=== PATIENT | male | born 1965 | race African-American/Black ===

== ENCOUNTER 2022-01-27 16:34 | Inpatient (IN) ==
[2022-01-27] MEDS ORDERED: Magnesium Sulfate 2 gm BAG 2 GM/50 ML BAG IVPB ONE (16:44)
[2022-01-27] MEDS ORDERED: Albuterol/Ipratropium NEB.SOL (2.5/0.5 MG) 3 ML NEB.SOLN INH ONE ×2 (16:44→20:16)
[2022-01-27 17:02] LABS: ABS Basophils 0.1 10^3/ul (0-0.2); ABS Eosinophils 0.3 10^3/ul (0-0.6); ABS Lymphocytes 1.2 10^3/ul (1.0-4.8); ABS Monocytes 0.6 10^3/ul (0-0.8); ABS Neutrophils 10.2 10^3/ul (1.5-7.7); Eosinophil % 2.1 %; Hematocrit 43 % (42-52); Hemoglobin 14.4 g/dL (14.0-18.0); Lymphocyte % 9.4 %; Mean Corpuscular HGB Conc 33 g/dL (31-36); Mean Corpuscular Hemoglobin 28 pg (27-31); Mean Corpuscular Volume 84 fL (80-94); Mean Platelet Volume 7.4 fL (7.4-10.4); Platelet Count 231 10^3/uL (150-450); Red Blood Count 5.19 10^6 /uL (4.18-5.48); Red Cell Distribution Width 14 % (10-15); White Blood Count 12.3 10^3/uL (3.5-10.8)
[2022-01-27 18:51] LABS: PCO2 Arterial 42 mmHg (35-45); PO2 Arterial 63 mmHg (80-100)
[2022-01-27 19:03] LABS: Albumin 4.6 g/dL (3.2-5.2); Albumin/Globulin Ratio 1.3 (1-3); Globulin 3.5 g/dL (2-4); Total Protein 8.1 g/dL (6.4-8.9); eGFR CKD-EPI 43.4 (>60)
[2022-01-27] MEDS ORDERED: Heparin 5000 UNITS/ML 1 mL VIAL SUBCUT SCH (22:00)
[2022-01-27] MEDS ORDERED: methylPREDNISolone SOD 40 mg/ml 1 ml VIAL IV ONE (22:00)
[2022-01-27] MEDS ORDERED: Albuterol HFA INHALER 8 gm MDI INH ONE (22:18)
[2022-01-28 00:11] LABS: C Reactive Protein 9.64 mg/L (<8.01); Magnesium 1.6 mg/dL (1.9-2.7)
[2022-01-28 00:25] LABS: TSH Ultra Thyroid Stim Horm 1.77 mcIU/mL (0.34-5.60)
[2022-01-28] MEDS: SPIRIVA Respimat (tiotropium) 2.5 mcg/inh Inhaler INH SCH ×2 (00:26→07:45)
[2022-01-28] MEDS: Albuterol HFA INHALER 8 gm MDI INH PRN (00:39)
[2022-01-28] MEDS: Enoxaparin 100 MG/ML SYR SUBCUT SCH ×2 (00:40→08:23)
[2022-01-28] MEDS: NS 0.9% 1000 ml BAG 1,000 ML IV SCH ×2 (00:42→13:17)
[2022-01-28] MEDS ORDERED: Nicotine GUM 2MG FRUIT FLAVOR PO PRN (00:44)
[2022-01-28] MEDS: ZAFIRLUKAST 20 MG PO SCH ×2 (00:47→09:58)
[2022-01-28 01:37] LABS: Vitamin D Total 25(OH) 18.9 ng/mL (20-50)
[2022-01-28 02:05] LABS: Urine Appearance Clear; Urine Bacteria Absent (Absent); Urine Bilirubin Negative (Negative); Urine Blood Negative (Negative); Urine Color Yellow; Urine Glucose Negative (Negative); Urine Ketones Negative (Negative); Urine Nitrite Negative (Negative); Urine Protein Negative (Negative); Urine Red Blood Cell Trace(0-2/hpf) (Absent); Urine Specific Gravity 1.012 (1.002-1.030); Urine Squamous Epithelial Cell Present (Absent); Urine Urobilinogen Negative (Negative); Urine White Blood Cell Trace(0-5/hpf) (Absent)
[2022-01-28 05:18] LABS: ABS Lymphocytes 0.4 10^3/ul (1.0-4.8); ABS Monocytes 0.1 10^3/ul (0-0.8); ABS Neutrophils 4.8 10^3/ul (1.5-7.7); Hematocrit 41 % (42-52); Hemoglobin 13.7 g/dL (14.0-18.0); Lymphocyte % 8.1 %; Mean Corpuscular HGB Conc 34 g/dL (31-36); Mean Corpuscular Hemoglobin 28 pg (27-31); Mean Corpuscular Volume 84 fL (80-94); Mean Platelet Volume 7.6 fL (7.4-10.4); Platelet Count 207 10^3/uL (150-450); Red Blood Count 4.84 10^6 /uL (4.18-5.48); Red Cell Distribution Width 14 % (10-15); White Blood Count 5.3 10^3/uL (3.5-10.8)
[2022-01-28 05:33] LABS: Calcium 9.7 mg/dL (8.6-10.3); Magnesium 2.1 mg/dL (1.9-2.7); Potassium 4.9 mmol/L (3.5-5.0); eGFR CKD-EPI 41.4 (>60)
[2022-01-28] MEDS: Albuterol HFA INHALER 8 gm MDI INH SCH ×2 (07:44→12:07)
[2022-01-28] MEDS: Mometasone/Formoter 200/5 MDI INH SCH ×2 (07:45→19:23)
[2022-01-28] MEDS: Sulfamethox/Trimethoprim DS TAB 800/160 mg PO SCH (08:22)
[2022-01-28] MEDS: Cholecalciferol (VIT D3) 1,000 unit TAB PO SCH (08:23)
[2022-01-28] MEDS: Nicotine PATCH 7 MG/24 HR PATCH TRANSDERM SCH (08:24)
[2022-01-28] MEDS: Nystatin SUSPENSION 100,000 UNITS/ML UDC PO SCH ×4 (09:53→20:09)
[2022-01-28] MEDS: DOLUTEGRAVIR 50 MG PO SCH (09:58)
[2022-01-28] MEDS: DARUNAVIR COBI EMTRI TENOF ALA PO SCH (09:59)
[2022-01-28] MEDS ORDERED: Iodixanol (CONTRAST) 320 MG/ML 100 ML SDV IV ONE (10:06)
[2022-01-28] MEDS ORDERED: Enoxaparin 40 MG/0.4 ML SYR SUBCUT SCH (12:00)
[2022-01-28 14:16] LABS: HDL Cholesterol 44.2 mg/dL
[2022-01-28] MEDS: cefTRIAXone 1 gm/50 mL D5W 1 GM/50 ML BAG IV SCH (14:20)
[2022-01-28] MEDS: Albuterol/Ipratropium NEB.SOL (2.5/0.5 MG) 3 ML NEB.SOLN INH SCH ×3 (14:45→19:22)
[2022-01-28] MEDS ORDERED: Furosemide 40 mg/4 ml IV VIAL IV SLOW PU ONE (16:45)
[2022-01-28] MEDS: methylPREDNISolone SOD 40 mg/ml 1 ml VIAL IV SCH (17:02)
[2022-01-29] MEDS: Albuterol/Ipratropium NEB.SOL (2.5/0.5 MG) 3 ML NEB.SOLN INH SCH ×5 (00:09→15:07)
[2022-01-29] MEDS: methylPREDNISolone SOD 40 mg/ml 1 ml VIAL IV SCH ×2 (04:37→17:09)
[2022-01-29 07:45] LABS: ABS Lymphocytes 0.4 10^3/ul (1.0-4.8); ABS Monocytes 0.6 10^3/ul (0-0.8); ABS Neutrophils 10.6 10^3/ul (1.5-7.7); Hematocrit 39 % (42-52); Hemoglobin 12.7 g/dL (14.0-18.0); Lymphocyte % 3.6 %; Mean Corpuscular HGB Conc 33 g/dL (31-36); Mean Corpuscular Hemoglobin 28 pg (27-31); Mean Corpuscular Volume 85 fL (80-94); Mean Platelet Volume 7.4 fL (7.4-10.4); Platelet Count 210 10^3/uL (150-450); Red Blood Count 4.59 10^6 /uL (4.18-5.48); Red Cell Distribution Width 14 % (10-15); White Blood Count 11.7 10^3/uL (3.5-10.8)
[2022-01-29] MEDS: Mometasone/Formoter 200/5 MDI INH SCH ×2 (07:48→20:32)
[2022-01-29 08:05] LABS: Calcium 9.4 mg/dL (8.6-10.3); Potassium 4.4 mmol/L (3.5-5.0); eGFR CKD-EPI 51.1 (>60)
[2022-01-29] MEDS: Cholecalciferol (VIT D3) 1,000 unit TAB PO SCH (08:49)
[2022-01-29] MEDS: Sulfamethox/Trimethoprim DS TAB 800/160 mg PO SCH (08:50)
[2022-01-29] MEDS: Enoxaparin 40 MG/0.4 ML SYR SUBCUT SCH (08:50)
[2022-01-29] MEDS: Nicotine PATCH 7 MG/24 HR PATCH TRANSDERM SCH (08:50)
[2022-01-29] MEDS: DOLUTEGRAVIR 50 MG PO SCH (10:26)
[2022-01-29] MEDS: DARUNAVIR COBI EMTRI TENOF ALA PO SCH (10:26)
[2022-01-29] MEDS: Nystatin SUSPENSION 100,000 UNITS/ML UDC PO SCH ×4 (10:27→20:16)
[2022-01-29] MEDS: cefTRIAXone 1 gm/50 mL D5W 1 GM/50 ML BAG IV SCH (12:53)
[2022-01-29] MEDS: Albuterol HFA INHALER 8 gm MDI INH PRN (20:32)
[2022-01-30] MEDS: methylPREDNISolone SOD 40 mg/ml 1 ml VIAL IV SCH ×2 (04:54→16:15)
[2022-01-30] MEDS: Albuterol/Ipratropium NEB.SOL (2.5/0.5 MG) 3 ML NEB.SOLN INH SCH ×3 (07:12→19:49)
[2022-01-30] MEDS: Mometasone/Formoter 200/5 MDI INH SCH ×2 (07:38→19:49)
[2022-01-30 08:53] LABS: ABS Lymphocytes 0.4 10^3/ul (1.0-4.8); ABS Monocytes 0.3 10^3/ul (0-0.8); ABS Neutrophils 10.3 10^3/ul (1.5-7.7); Hematocrit 40 % (42-52); Hemoglobin 13.3 g/dL (14.0-18.0); Lymphocyte % 3.4 %; Mean Corpuscular HGB Conc 33 g/dL (31-36); Mean Corpuscular Hemoglobin 28 pg (27-31); Mean Corpuscular Volume 84 fL (80-94); Mean Platelet Volume 7.1 fL (7.4-10.4); Nucleated Red Blood Cells % 0.1; Platelet Count 214 10^3/uL (150-450); Red Blood Count 4.76 10^6 /uL (4.18-5.48); Red Cell Distribution Width 15 % (10-15)
[2022-01-30] MEDS: Sulfamethox/Trimethoprim DS TAB 800/160 mg PO SCH (08:53)
[2022-01-30] MEDS: Cholecalciferol (VIT D3) 1,000 unit TAB PO SCH (08:53)
[2022-01-30] MEDS: DARUNAVIR COBI EMTRI TENOF ALA PO SCH (08:55)
[2022-01-30] MEDS: DOLUTEGRAVIR 50 MG PO SCH (08:55)
[2022-01-30] MEDS: Nicotine PATCH 7 MG/24 HR PATCH TRANSDERM SCH (08:56)
[2022-01-30] MEDS: Enoxaparin 40 MG/0.4 ML SYR SUBCUT SCH (08:56)
[2022-01-30 09:22] LABS: Calcium 9.5 mg/dL (8.6-10.3); Potassium 4.8 mmol/L (3.5-5.0); eGFR CKD-EPI 58.1 (>60)
[2022-01-30] MEDS: Nystatin SUSPENSION 100,000 UNITS/ML UDC PO SCH ×4 (09:25→20:30)
[2022-01-30] MEDS: cefTRIAXone 1 gm/50 mL D5W 1 GM/50 ML BAG IV SCH (13:24)
[2022-01-30] MEDS: Albuterol HFA INHALER 8 gm MDI INH PRN (16:43)
[2022-01-31] MEDS: methylPREDNISolone SOD 40 mg/ml 1 ml VIAL IV SCH ×2 (04:39→17:39)
[2022-01-31 05:15] LABS: ABS Lymphocytes 0.4 10^3/ul (1.0-4.8); ABS Monocytes 0.5 10^3/ul (0-0.8); ABS Neutrophils 9.6 10^3/ul (1.5-7.7); Hematocrit 40 % (42-52); Hemoglobin 13.1 g/dL (14.0-18.0); Mean Corpuscular HGB Conc 33 g/dL (31-36); Mean Corpuscular Hemoglobin 28 pg (27-31); Mean Corpuscular Volume 85 fL (80-94); Mean Platelet Volume 7.4 fL (7.4-10.4); Platelet Count 222 10^3/uL (150-450); Red Blood Count 4.66 10^6 /uL (4.18-5.48); Red Cell Distribution Width 15 % (10-15); White Blood Count 10.5 10^3/uL (3.5-10.8)
[2022-01-31 05:27] LABS: Calcium 9.1 mg/dL (8.6-10.3); eGFR CKD-EPI 46.1 (>60)
[2022-01-31] MEDS: Albuterol/Ipratropium NEB.SOL (2.5/0.5 MG) 3 ML NEB.SOLN INH SCH ×2 (07:09→19:59)
[2022-01-31] MEDS: Mometasone/Formoter 200/5 MDI INH SCH ×2 (08:30→20:04)
[2022-01-31] MEDS: DOLUTEGRAVIR 50 MG PO SCH (10:26)
[2022-01-31] MEDS: Nystatin SUSPENSION 100,000 UNITS/ML UDC PO SCH ×4 (10:26→20:24)
[2022-01-31] MEDS: DARUNAVIR COBI EMTRI TENOF ALA PO SCH (10:27)
[2022-01-31] MEDS: Cholecalciferol (VIT D3) 1,000 unit TAB PO SCH (10:28)
[2022-01-31] MEDS: Enoxaparin 40 MG/0.4 ML SYR SUBCUT SCH (10:29)
[2022-01-31] MEDS: Sulfamethox/Trimethoprim DS TAB 800/160 mg PO SCH (10:35)
[2022-01-31] MEDS: Nicotine PATCH 7 MG/24 HR PATCH TRANSDERM SCH (12:06)
[2022-01-31] MEDS: cefTRIAXone 1 gm/50 mL D5W 1 GM/50 ML BAG IV SCH (12:44)
[2022-02-01] MEDS: methylPREDNISolone SOD 40 mg/ml 1 ml VIAL IV SCH ×2 (04:25→16:35)
[2022-02-01 05:51] LABS: ABS Lymphocytes 0.6 10^3/ul (1.0-4.8); ABS Monocytes 0.7 10^3/ul (0-0.8); Hematocrit 40 % (42-52); Hemoglobin 13.3 g/dL (14.0-18.0); Lymphocyte % 5.6 %; Mean Corpuscular HGB Conc 34 g/dL (31-36); Mean Corpuscular Hemoglobin 28 pg (27-31); Mean Corpuscular Volume 85 fL (80-94); Mean Platelet Volume 7.3 fL (7.4-10.4); Nucleated Red Blood Cells % 0.1; Platelet Count 241 10^3/uL (150-450); Red Blood Count 4.69 10^6 /uL (4.18-5.48); Red Cell Distribution Width 14 % (10-15); White Blood Count 10.3 10^3/uL (3.5-10.8)
[2022-02-01 06:09] LABS: Calcium 9.2 mg/dL (8.6-10.3); Potassium 4.8 mmol/L (3.5-5.0); eGFR CKD-EPI 49.9 (>60)
[2022-02-01] MEDS: Albuterol/Ipratropium NEB.SOL (2.5/0.5 MG) 3 ML NEB.SOLN INH SCH ×4 (08:29→20:41)
[2022-02-01] MEDS: Mometasone/Formoter 200/5 MDI INH SCH ×2 (08:29→20:43)
[2022-02-01] MEDS: Nystatin SUSPENSION 100,000 UNITS/ML UDC PO SCH ×4 (09:33→20:38)
[2022-02-01] MEDS: Enoxaparin 40 MG/0.4 ML SYR SUBCUT SCH (09:33)
[2022-02-01] MEDS: Cholecalciferol (VIT D3) 1,000 unit TAB PO SCH (09:33)
[2022-02-01] MEDS: Sulfamethox/Trimethoprim DS TAB 800/160 mg PO SCH (09:34)
[2022-02-01] MEDS: Nicotine PATCH 7 MG/24 HR PATCH TRANSDERM SCH (09:34)
[2022-02-01] MEDS: DARUNAVIR COBI EMTRI TENOF ALA PO SCH (09:35)
[2022-02-01] MEDS: DOLUTEGRAVIR 50 MG PO SCH (09:35)
[2022-02-01] MEDS: cefTRIAXone 1 gm/50 mL D5W 1 GM/50 ML BAG IV SCH (13:24)
[2022-02-02] MEDS: methylPREDNISolone SOD 40 mg/ml 1 ml VIAL IV SCH ×2 (05:33→17:11)
[2022-02-02] MEDS: Nicotine PATCH 7 MG/24 HR PATCH TRANSDERM SCH (07:48)
[2022-02-02] MEDS: Enoxaparin 40 MG/0.4 ML SYR SUBCUT SCH (07:49)
[2022-02-02] MEDS: Cholecalciferol (VIT D3) 1,000 unit TAB PO SCH (07:49)
[2022-02-02] MEDS: Sulfamethox/Trimethoprim DS TAB 800/160 mg PO SCH (07:50)
[2022-02-02] MEDS: DARUNAVIR COBI EMTRI TENOF ALA PO SCH (07:50)
[2022-02-02] MEDS: DOLUTEGRAVIR 50 MG PO SCH (07:50)
[2022-02-02] MEDS: Mometasone/Formoter 200/5 MDI INH SCH ×2 (08:02→19:41)
[2022-02-02] MEDS: Albuterol/Ipratropium NEB.SOL (2.5/0.5 MG) 3 ML NEB.SOLN INH SCH ×4 (08:02→19:40)
[2022-02-02 09:33] LABS: % CD3 60 % (58-86); % CD4 2 % (32-64); % CD8 54 % (11-40); Absolute CD45 Count 0.48 thou/mcL (0.82-2.84); CD3 287 cells/mcL (550-2202); CD4 11 cells/mcL (365-1437); CD8 257 cells/mcL (117-846)
[2022-02-02] MEDS: cefTRIAXone 1 gm/50 mL D5W 1 GM/50 ML BAG IV SCH (13:10)
[2022-02-03] MEDS: methylPREDNISolone SOD 40 mg/ml 1 ml VIAL IV SCH ×2 (05:07→18:31)
[2022-02-03 06:52] LABS: ABS Lymphocytes 0.5 10^3/ul (1.0-4.8); ABS Monocytes 0.5 10^3/ul (0-0.8); Hematocrit 39 % (42-52); Hemoglobin 13.2 g/dL (14.0-18.0); Lymphocyte % 5.2 %; Mean Corpuscular HGB Conc 34 g/dL (31-36); Mean Corpuscular Hemoglobin 29 pg (27-31); Mean Corpuscular Volume 84 fL (80-94); Mean Platelet Volume 7.4 fL (7.4-10.4); Nucleated Red Blood Cells % 0.1; Platelet Count 249 10^3/uL (150-450); Red Blood Count 4.63 10^6 /uL (4.18-5.48); Red Cell Distribution Width 14 % (10-15)
[2022-02-03 07:08] LABS: Calcium 9.2 mg/dL (8.6-10.3); Potassium 4.7 mmol/L (3.5-5.0); eGFR CKD-EPI 40.4 (>60)
[2022-02-03] MEDS: Albuterol/Ipratropium NEB.SOL (2.5/0.5 MG) 3 ML NEB.SOLN INH SCH (07:57)
[2022-02-03] MEDS: Mometasone/Formoter 200/5 MDI INH SCH ×2 (07:58→20:01)
[2022-02-03] MEDS: Albuterol HFA INHALER 8 gm MDI INH PRN ×2 (07:58→20:06)
[2022-02-03] MEDS ORDERED: Albuterol/Ipratropium NEB.SOL (2.5/0.5 MG) 3 ML NEB.SOLN INH PRN (08:09)
[2022-02-03] MEDS: Cholecalciferol (VIT D3) 1,000 unit TAB PO SCH (10:23)
[2022-02-03] MEDS: Sulfamethox/Trimethoprim DS TAB 800/160 mg PO SCH ×2 (10:26→23:39)
[2022-02-03] MEDS: Nicotine PATCH 7 MG/24 HR PATCH TRANSDERM SCH (10:27)
[2022-02-03] MEDS: DOLUTEGRAVIR 50 MG PO SCH (10:28)
[2022-02-03] MEDS: DARUNAVIR COBI EMTRI TENOF ALA PO SCH (10:28)
[2022-02-03] MEDS: Enoxaparin 40 MG/0.4 ML SYR SUBCUT SCH (10:29)
[2022-02-03] MEDS: cefTRIAXone 1 gm/50 mL D5W 1 GM/50 ML BAG IV SCH (12:41)
[2022-02-03] MEDS: Nystatin SUSPENSION 100,000 UNITS/ML UDC PO SCH ×2 (18:31→23:39)
[2022-02-04] MEDS: methylPREDNISolone SOD 40 mg/ml 1 ml VIAL IV SCH ×2 (05:33→17:18)
[2022-02-04 06:06] LABS: Hematocrit 40 % (42-52); Hemoglobin 13.5 g/dL (14.0-18.0); Mean Corpuscular HGB Conc 34 g/dL (31-36); Mean Corpuscular Hemoglobin 28 pg (27-31); Mean Corpuscular Volume 84 fL (80-94); Platelet Count 241 10^3/uL (150-450); Red Blood Count 4.75 10^6 /uL (4.18-5.48); Red Cell Distribution Width 15 % (10-15); White Blood Count 9.6 10^3/uL (3.5-10.8)
[2022-02-04 06:42] LABS: Calcium 8.9 mg/dL (8.6-10.3); Potassium 4.9 mmol/L (3.5-5.0); eGFR CKD-EPI 51.9 (>60)
[2022-02-04] MEDS: Mometasone/Formoter 200/5 MDI INH SCH ×2 (07:17→19:43)
[2022-02-04] MEDS: Albuterol HFA INHALER 8 gm MDI INH PRN ×2 (07:17→19:46)
[2022-02-04] MEDS: DOLUTEGRAVIR 50 MG PO SCH (07:36)
[2022-02-04] MEDS: DARUNAVIR COBI EMTRI TENOF ALA PO SCH (07:36)
[2022-02-04] MEDS: Enoxaparin 40 MG/0.4 ML SYR SUBCUT SCH (07:36)
[2022-02-04] MEDS: Nicotine PATCH 7 MG/24 HR PATCH TRANSDERM SCH (07:36)
[2022-02-04] MEDS: Cholecalciferol (VIT D3) 1,000 unit TAB PO SCH (07:37)
[2022-02-04] MEDS: Nystatin SUSPENSION 100,000 UNITS/ML UDC PO SCH ×4 (07:37→20:42)
[2022-02-04] MEDS: Sulfamethox/Trimethoprim DS TAB 800/160 mg PO SCH ×2 (07:37→20:42)
[2022-02-04 08:21] LABS: ABS Lymphocytes 0.5 10^3/ul (1.0-4.8); ABS Monocytes 0.5 10^3/ul (0-0.8); ABS Neutrophils 8.5 10^3/ul (1.5-7.7); Lymphocyte % 5.5 %; Nucleated Red Blood Cells % 0.2
[2022-02-04] MEDS: cefTRIAXone 1 gm/50 mL D5W 1 GM/50 ML BAG IV SCH (13:30)
[2022-02-04 22:57] LABS: Fungitell Qualitative Result Negative (Negative); Fungitell Quantitative Value <31 pg/mL (<60 pg/mL)
[2022-02-05] MEDS: methylPREDNISolone SOD 40 mg/ml 1 ml VIAL IV SCH (04:09)
[2022-02-05 04:41] LABS: Hematocrit 39 % (42-52); Hemoglobin 13.2 g/dL (14.0-18.0); Mean Corpuscular HGB Conc 34 g/dL (31-36); Mean Corpuscular Hemoglobin 28 pg (27-31); Mean Corpuscular Volume 83 fL (80-94); Mean Platelet Volume 7.2 fL (7.4-10.4); Platelet Count 247 10^3/uL (150-450); Red Blood Count 4.69 10^6 /uL (4.18-5.48); Red Cell Distribution Width 14 % (10-15); White Blood Count 10.7 10^3/uL (3.5-10.8)
[2022-02-05 05:06] LABS: Anion Gap 6 mmol/L (2-11); Blood Urea Nitrogen 44 mg/dL (6-24); C Reactive Protein < 1.00 mg/L (<8.01); CO2 Carbon Dioxide 27 mmol/L (22-32); Calcium 8.8 mg/dL (8.6-10.3); Chloride 102 mmol/L (101-111); Glucose 146 mg/dL (70-100); Sodium 135 mmol/L (135-145); eGFR CKD-EPI 48.8 (>60)
[2022-02-05] MEDS: Mometasone/Formoter 200/5 MDI INH SCH (07:39)
[2022-02-05] MEDS: Albuterol HFA INHALER 8 gm MDI INH PRN (07:41)
[2022-02-05] MEDS: Nystatin SUSPENSION 100,000 UNITS/ML UDC PO SCH ×2 (09:14→14:39)
[2022-02-05] MEDS: Enoxaparin 40 MG/0.4 ML SYR SUBCUT SCH (09:14)
[2022-02-05] MEDS: Nicotine PATCH 7 MG/24 HR PATCH TRANSDERM SCH (09:15)
[2022-02-05] MEDS: Cholecalciferol (VIT D3) 1,000 unit TAB PO SCH (09:15)
[2022-02-05] MEDS: Sulfamethox/Trimethoprim DS TAB 800/160 mg PO SCH (09:17)
[2022-02-05] MEDS: DOLUTEGRAVIR 50 MG PO SCH (11:24)
[2022-02-05] MEDS: DARUNAVIR COBI EMTRI TENOF ALA PO SCH (11:50)
[2022-02-05 15:28] VITALS: BP 125/72
== END 2022-02-05 16:45 | DRG 890 ==
LOC: ED 16:34 → EDHOLD 16:34 → SUATTDRO 20:10 → MED 22:04 → SUATTDRO 01-29 18:16
PROVIDERS: ADMIT Nurse Practitioner Family; ATTEND Hospitalist

== ENCOUNTER 2023-11-17 19:27 | Inpatient (IN) ==
[2023-11-17] MEDS ORDERED: Iodixanol (CONTRAST) 320 MG/ML 100 ML SDV IV ONE (20:03)
[2023-11-17 20:18] LABS: ABS Basophils 0.3 10^3/uL (0.0-0.1); ABS Eosinophils 0.3 10^3/uL (0.0-0.5); ABS Lymphocytes 1.5 10^3/uL (1.0-4.8); ABS Neutrophils 5.6 10^3/uL (1.5-7.6); ABS Nucleated RBC 0.01 10^3/ul; Eosinophil % 3.6 %; Hematocrit 39.4 % (38-53); Hemoglobin 13.2 g/dL (13.2-16.3); Lymphocyte % 16.7 %; Mean Corpuscular Hemoglobin 29.1 pg (27-33); Mean Corpuscular Hgb Conc 33.5 g/dL (31-36); Mean Platelet Volume 6.8 fL (7.5-11.2); Nucleated Red Blood Cells % 0.1 %/100WBC (0.0-0.8); Platelet Count 290 10^3/uL (150-450); Red Blood Count 4.53 10^6/uL (4.06-5.63); Red Cell Distribution Width 14.7 % (12-17); White Blood Count 8.7 10^3/uL (3.6-10.2)
[2023-11-17 20:25] LABS: Activated Partial Thrombo Time 37.2 seconds (26.0-38.0); INR 1.06 (0.83-1.13)
[2023-11-17 20:38] LABS: Albumin 3.9 g/dL (3.2-5.2); Calcium 9.6 mg/dL (8.6-10.3); Creatinine, Serum 1.7 mg/dL (0.67-1.17); Globulin 3.9 g/dL (2-4); HDL Cholesterol 36.5 mg/dL; Indirect Bilirubin 0.4 mg/dL (0.3-1.0); Potassium 4.8 mmol/L (3.5-5.0); Total Bilirubin 0.4 mg/dL (0.2-1.0); Total Protein 7.8 g/dL (6.4-8.9); eGFR CKD-EPI 46.2 (>60)
[2023-11-17] MEDS ORDERED: Enoxaparin 40 MG/0.4 ML SYR SUBCUT SCH (22:00)
[2023-11-17] MEDS ORDERED: Albuterol HFA INHALER 8 gm MDI INH PRN (22:16)
[2023-11-18] MEDS: Ipratropium HFA INHALER(NF) (ALTERNATIVE = NEBS) INH SCH ×4 (08:09→18:13)
[2023-11-18 10:30] LABS: C Reactive Protein 30.86 mg/L (<8.01)
[2023-11-18] MEDS: Lactated Ringers 1000 ml BAG 1,000 ML IV SCH (12:23)
[2023-11-18] MEDS: Ammonium Lactate 12% 1 APPLIC TUBE TOPICAL SCH (12:30)
[2023-11-18 12:45] LABS: Urine Appearance Clear; Urine Bilirubin Negative (Negative); Urine Blood Negative (Negative); Urine Color Yellow; Urine Glucose Negative (Negative); Urine Ketones Negative (Negative); Urine Nitrite Negative (Negative); Urine Protein Negative (Negative); Urine Specific Gravity 1.028 (1.002-1.030); Urine Urobilinogen Negative (Negative)
[2023-11-19] MEDS: Lactated Ringers 1000 ml BAG 1,000 ML IV SCH (03:32)
[2023-11-19 07:00] LABS: ABS Basophils 0.1 10^3/uL (0.0-0.1); ABS Eosinophils 0.4 10^3/uL (0.0-0.5); ABS Monocytes 0.9 10^3/uL (0.0-1.1); ABS Neutrophils 4.1 10^3/uL (1.5-7.6); ABS Nucleated RBC 0.01 10^3/ul; Eosinophil % 5.3 %; Hematocrit 38.2 % (38-53); Hemoglobin 12.8 g/dL (13.2-16.3); Mean Corpuscular Hemoglobin 28.9 pg (27-33); Mean Corpuscular Hgb Conc 33.5 g/dL (31-36); Mean Corpuscular Volume 86.5 fL (80-97); Mean Platelet Volume 6.8 fL (7.5-11.2); Nucleated Red Blood Cells % 0.1 %/100WBC (0.0-0.8); Platelet Count 270 10^3/uL (150-450); Red Blood Count 4.42 10^6/uL (4.06-5.63); Red Cell Distribution Width 14.6 % (12-17); White Blood Count 7.5 10^3/uL (3.6-10.2)
[2023-11-19 08:08] LABS: Calcium 9.4 mg/dL (8.6-10.3); Creatinine, Serum 1.47 mg/dL (0.67-1.17); Potassium 4.4 mmol/L (3.5-5.0); eGFR CKD-EPI 54.9 (>60)
[2023-11-19] MEDS: Ipratropium HFA INHALER(NF) (ALTERNATIVE = NEBS) INH SCH ×4 (08:36→20:05)
[2023-11-19] MEDS: Ammonium Lactate 12% 1 APPLIC TUBE TOPICAL SCH (09:45)
[2023-11-19] MEDS ORDERED: Albuterol/Ipratropium NEB.SOL (2.5/0.5 MG) 3 ML NEB.SOLN INH PRN (14:01)
[2023-11-20] MEDS: Albuterol/Ipratropium NEB.SOL (2.5/0.5 MG) 3 ML NEB.SOLN INH SCH ×4 (03:26→20:39)
[2023-11-20] MEDS: Ammonium Lactate 12% 1 APPLIC TUBE TOPICAL SCH (08:30)
[2023-11-20 09:59] LABS: ABS Basophils 0.1 10^3/uL (0.0-0.1); ABS Eosinophils 0.4 10^3/uL (0.0-0.5); ABS Lymphocytes 1.3 10^3/uL (1.0-4.8); ABS Neutrophils 6.1 10^3/uL (1.5-7.6); ABS Nucleated RBC 0.01 10^3/ul; Hematocrit 40.8 % (38-53); Hemoglobin 13.6 g/dL (13.2-16.3); Lymphocyte % 14.8 %; Mean Corpuscular Hemoglobin 29.1 pg (27-33); Mean Corpuscular Hgb Conc 33.3 g/dL (31-36); Mean Corpuscular Volume 87.4 fL (80-97); Mean Platelet Volume 6.8 fL (7.5-11.2); Nucleated Red Blood Cells % 0.1 %/100WBC (0.0-0.8); Platelet Count 265 10^3/uL (150-450); Red Blood Count 4.67 10^6/uL (4.06-5.63); Red Cell Distribution Width 14.5 % (12-17); White Blood Count 8.9 10^3/uL (3.6-10.2)
[2023-11-20 10:17] LABS: Calcium 9.4 mg/dL (8.6-10.3); Creatinine, Serum 1.21 mg/dL (0.67-1.17); Magnesium 1.9 mg/dL (1.9-2.7); Potassium 4.4 mmol/L (3.5-5.0); eGFR CKD-EPI 69.4 (>60)
[2023-11-20] MEDS: methylPREDNISolone SOD SUCC 40 mg/ml 1 ml VIAL IV SCH (14:44)
[2023-11-20] MEDS: Enoxaparin 40 MG/0.4 ML SYR SUBCUT SCH (14:44)
[2023-11-21] MEDS: Albuterol/Ipratropium NEB.SOL (2.5/0.5 MG) 3 ML NEB.SOLN INH SCH ×2 (01:45→08:11)
[2023-11-21 06:14] LABS: ABS Lymphocytes 1.2 10^3/uL (1.0-4.8); ABS Monocytes 0.5 10^3/uL (0.0-1.1); ABS Neutrophils 4.3 10^3/uL (1.5-7.6); ABS Nucleated RBC 0.02 10^3/ul; Eosinophil % 0.3 %; Hematocrit 43.3 % (38-53); Hemoglobin 14.2 g/dL (13.2-16.3); Mean Corpuscular Hemoglobin 29.2 pg (27-33); Mean Corpuscular Hgb Conc 32.8 g/dL (31-36); Mean Corpuscular Volume 89.2 fL (80-97); Mean Platelet Volume 6.8 fL (7.5-11.2); Nucleated Red Blood Cells % 0.3 %/100WBC (0.0-0.8); Platelet Count 254 10^3/uL (150-450); Red Blood Count 4.85 10^6/uL (4.06-5.63); Red Cell Distribution Width 14.5 % (12-17); White Blood Count 6.1 10^3/uL (3.6-10.2)
[2023-11-21 06:22] LABS: Calcium 9.8 mg/dL (8.6-10.3); Creatinine, Serum 1.31 mg/dL (0.67-1.17); Magnesium 2.1 mg/dL (1.9-2.7); Potassium 5.1 mmol/L (3.5-5.0); eGFR CKD-EPI 63.1 (>60)
[2023-11-21] MEDS ORDERED: Albuterol/Ipratropium NEB.SOL (2.5/0.5 MG) 3 ML NEB.SOLN INH PRN (08:11)
[2023-11-21] MEDS: Ammonium Lactate 12% 1 APPLIC TUBE TOPICAL SCH (09:29)
[2023-11-21] MEDS: Enoxaparin 40 MG/0.4 ML SYR SUBCUT SCH (11:13)
[2023-11-21] MEDS: methylPREDNISolone SOD SUCC 40 mg/ml 1 ml VIAL IV SCH (14:06)
[2023-11-22 07:10] LABS: ABS Basophils 0.1 10^3/uL (0.0-0.1); ABS Eosinophils 0.2 10^3/uL (0.0-0.5); ABS Lymphocytes 1.6 10^3/uL (1.0-4.8); ABS Monocytes 0.9 10^3/uL (0.0-1.1); ABS Neutrophils 6.3 10^3/uL (1.5-7.6); Eosinophil % 1.9 %; Hematocrit 39.6 % (38-53); Hemoglobin 13.3 g/dL (13.2-16.3); Lymphocyte % 17.6 %; Mean Corpuscular Hemoglobin 29.1 pg (27-33); Mean Corpuscular Hgb Conc 33.5 g/dL (31-36); Mean Corpuscular Volume 86.9 fL (80-97); Platelet Count 287 10^3/uL (150-450); Red Blood Count 4.55 10^6/uL (4.06-5.63); Red Cell Distribution Width 14.5 % (12-17)
[2023-11-22 07:25] LABS: Calcium 9.5 mg/dL (8.6-10.3); Creatinine, Serum 1.36 mg/dL (0.67-1.17); Magnesium 2.1 mg/dL (1.9-2.7); Potassium 4.1 mmol/L (3.5-5.0); eGFR CKD-EPI 60.3 (>60)
[2023-11-22] MEDS: Ammonium Lactate 12% 1 APPLIC TUBE TOPICAL SCH (08:51)
[2023-11-22] MEDS: Enoxaparin 40 MG/0.4 ML SYR SUBCUT SCH (11:22)
[2023-11-23] MEDS ORDERED: Polyethylene Glycol 3350 17 GM PACKET PO SCH (08:00)
[2023-11-23] MEDS: Ammonium Lactate 12% 1 APPLIC TUBE TOPICAL SCH (08:07)
[2023-11-23] MEDS ORDERED: DOLUTEGRAVIR 50 MG PO SCH (09:00)
[2023-11-23] MEDS ORDERED: DARUNAVIR COBI EMTRI TENOF ALA PO SCH (09:00)
[2023-11-23] MEDS ORDERED: Cholecalciferol (VIT D3) 1,000 unit TAB PO SCH (09:00)
[2023-11-23 10:25] VITALS: BP 120/88
[2023-11-23] MEDS: Enoxaparin 40 MG/0.4 ML SYR SUBCUT SCH (12:00)
[2023-11-23] MEDS ORDERED: Senna TAB 8.6 mg TAB PO SCH (21:00)
== END 2023-11-23 12:30 | disposition home or self-care (01) | DRG 45 ==
LOC: EDHOLD 19:27 → ED 19:27 → SUATTDRO 21:28 → MEDTELE 23:06 → SUATTDRO 11-18 11:08
PROVIDERS: ADMIT Internal Medicine; ATTEND Internal Medicine